=== PATIENT | male | born 1955 ===

== ENCOUNTER 2018-07-28 12:06 | Emergency (ER) | payer MEDICARE, OTHER ==
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
[2018-07-28 15:56] LABS: BASO # 0.1 K/uL (0.0-0.2); BASO % 0.7 % (0.0-2.0); EOS # 0.1 K/uL (0.0-0.7); HEMOGLOBIN 15.1 g/dL (12.0-18.0); LYMPH # 1.2 K/uL (1.0-4.3); LYMPH % 13.9 % (20.0-40.0); MEAN CELL VOLUME 85.8 fl (80.0-94.0); MEAN CORPUSCULAR HEMOGLOBIN 28.9 pg (27.0-31.0); MEAN CORPUSCULAR HGB CONC 33.7 g/dL (33.0-37.0); MEAN PLATELET VOLUME 8.8 fl (7.2-11.7); MONO # 0.4 K/uL (0.0-0.8); MONO % 4.6 % (0.0-10.0); NEUT # 7.1 K/uL (1.8-7.0); NEUT % 79.8 % (50.0-75.0); RBC 5.21 Mil/uL (4.40-5.90); RED CELL DISTRIBUTION WIDTH 13.2 % (11.5-14.5); WHITE BLOOD COUNT 8.9 K/uL (4.8-10.8)
[2018-07-28 16:23] LABS: SQUAMOUS EPITHIAL < 1 /hpf (0-5); URINE BILIRUBIN NEGATIVE (NEGATIVE); URINE BLOOD NEGATIVE (NEGATIVE); URINE CLARITY CLEAR (Clear); URINE COLOR YELLOW (YELLOW); URINE GLUCOSE (UA) >=500 mg/dL (Normal); URINE LEUKOCYTE ESTERASE NEG Leu/uL (Negative); URINE PROTEIN NEGATIVE (NEGATIVE); URINE UROBILINOGEN 0.2-1.0 mg/dL (0.2-1.0)
[2018-07-28 16:39] LABS: ALB/GLOB RATIO 1.2 (1.0-2.1); ALBUMIN 4.3 g/dL (3.5-5.0); ALT/SGPT 24 U/L (21-72); AST/SGOT 17 U/L (17-59); BLOOD UREA NITROGEN 17 mg/dl (9-20); CALCIUM 10.1 mg/dL (8.4-10.2); GFR NON-AFRICAN AMERICAN > 60
[2018-07-28 16:46] LABS: BARBITURATES, UR NEGATIVE (NEGATIVE); BENZODIAZEPINES, UR NEGATIVE (NEGATIVE); OPIATES, UR NEGATIVE (NEGATIVE); PHENCYCLIDINE, UR NEGATIVE (NEGATIVE)
--- NOTE | 2018-07-28 17:17 | RAD ---
Date of service: 07/28/2018 HISTORY: psych clearance COMPARISON: No prior TECHNIQUE: Chest PA and lateral FINDINGS: LUNGS: No active pulmonary disease. PLEURA: No significant pleural effusion identified. No pneumothorax apparent. CARDIOVASCULAR: Aortic atherosclerotic calcifications. Cardiomediastinal silhouette within normal limits. OSSEOUS STRUCTURES: Spinal degenerative changes. VISUALIZED UPPER ABDOMEN: Normal. OTHER FINDINGS: None. IMPRESSION: No active disease.
[2018-07-28 18:23] VITALS: BP 133/86; RESP 17; TEMP 98.8
--- NOTE | 2018-07-29 16:18 | CARD ---
APPROVED REPORT Date of service: 07/28/2018 EKG Measurement Heart [id number] <Conclusion> Normal sinus rhythm Normal ECG
[2018-07-29 23:14] VITALS: PULSE 82; O2SAT 98
== END 2018-07-28 18:22 | disposition home or self-care (01) ==
LOC: H.ER 12:06
DX: F02.80 Dementia in other diseases classified elsewhere, unspecified severity, without behavioral disturbance, psychotic disturbance, mood disturbance, and anxiety (principal); G30.9 Alzheimer's disease, unspecified; E11.9 Type 2 diabetes mellitus without complications
CPT/HCPCS: 71046; 80053; 81003; 85025; 93005; 99283; G0480

== ENCOUNTER 2019-02-09 23:54 | Inpatient (IN) | payer MEDICARE, OTHER ==
[2019-02-10 00:53] LABS: BASO % 0.6 % (0.0-2.0); EOS # 0.1 K/uL (0.0-0.7); EOS % 1.1 % (0.0-4.0); HEMOGLOBIN 13.9 g/dL (12.0-18.0); LYMPH # 1.4 K/uL (1.0-4.3); MEAN CELL VOLUME 85.4 fl (80.0-94.0); MEAN CORPUSCULAR HEMOGLOBIN 28.8 pg (27.0-31.0); MEAN CORPUSCULAR HGB CONC 33.7 g/dL (33.0-37.0); MEAN PLATELET VOLUME 8.5 fl (7.2-11.7); MONO # 0.5 K/uL (0.0-0.8); MONO % 6.3 % (0.0-10.0); NEUT # 5.3 K/uL (1.8-7.0); RBC 4.82 Mil/uL (4.40-5.90); RED CELL DISTRIBUTION WIDTH 13.6 % (11.5-14.5); WHITE BLOOD COUNT 7.3 K/uL (4.8-10.8)
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
[2019-02-10 01:05] LABS: ACETAMINOPHEN < 10.0 ug/ml (10.0-30.0); ALB/GLOB RATIO 1.4 (1.0-2.1); ALBUMIN 4.3 g/dL (3.5-5.0); ALT/SGPT 25 U/L (21-72); AST/SGOT 19 U/L (17-59); BLOOD UREA NITROGEN 17 mg/dl (9-20); CALCIUM 9.4 mg/dL (8.4-10.2); GFR NON-AFRICAN AMERICAN > 60; SALICYLATE < 1.0 mg/dl
[2019-02-10 04:27] LABS: SQUAMOUS EPITHIAL < 1 /hpf (0-5); URINE BILIRUBIN NEGATIVE (NEGATIVE); URINE BLOOD NEGATIVE (NEGATIVE); URINE CLARITY SLIGHTY-CLOUDY (Clear); URINE COLOR YELLOW (YELLOW); URINE GLUCOSE (UA) 150 mg/dL (NEGATIVE); URINE HYALINE CAST 0-2 /hpf (0-2); URINE LEUKOCYTE ESTERASE NEG Leu/uL (Negative); URINE PROTEIN 30 mg/dL (NEGATIVE); URINE UROBILINOGEN 0.2-1.0 mg/dL (0.2-1.0)
[2019-02-10 04:35] LABS: BARBITURATES, UR NEGATIVE (NEGATIVE); BENZODIAZEPINES, UR NEGATIVE (NEGATIVE); OPIATES, UR NEGATIVE (NEGATIVE); PHENCYCLIDINE, UR NEGATIVE (NEGATIVE)
[2019-02-10 06:29] VITALS: O2SAT 98
[2019-02-10] MEDS ORDERED: Alum-Mag Hydrox-Simethicone Susp (30 mL) PO PRN (07:13)
[2019-02-10] MEDS ORDERED: Bismuth Subsalicylate 262 mg/15 ml Sus (240 ml) PO PRN (07:13)
[2019-02-10] MEDS ORDERED: Magnesium Hydroxide Susp 30 ml UD PO PRN (07:13)
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
--- NOTE | 2019-02-10 08:12 | RAD ---
Date of service: 02/10/2019 HISTORY: chest pain COMPARISON: Chest radiographs 07/28/2018. TECHNIQUE: 1 view obtained. FINDINGS: LUNGS: No acute pulmonary disease. PLEURA: No significant pleural effusion identified, no pneumothorax apparent. CARDIOVASCULAR: No aortic atherosclerotic calcification present. Normal cardiac size. No pulmonary vascular congestion. OSSEOUS STRUCTURES: No significant abnormalities. VISUALIZED UPPER ABDOMEN: Mildly elevated right hemidiaphragm of uncertain origin. OTHER FINDINGS: None. IMPRESSION: No interval acute cardiopulmonary disease appreciated. Mildly elevated right hemidiaphragm of uncertain origin.
[2019-02-10] MEDS ORDERED: DiphenhydrAMINE 50 mg/ml Inj IM PRN (09:12)
--- NOTE | 2019-02-10 10:09 | CARD ---
APPROVED REPORT Date of service: 02/10/2019 EKG Measurement Heart [id number] <Conclusion> Normal sinus rhythm Normal ECG
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
[2019-02-10] MEDS: Divalproex 500 mg DR(BID formulation) PO SCH ×2 (13:23→16:20)
--- NOTE | 2019-02-10 17:39 | CP.PCM.CON ---
History of Present Illness - History of Present Illness History of Present Illness: 64 yo male with history of dementia admitted to [facility] because of agitation Review of Systems - Review of Systems Systems not reviewed;Unavailable: Uncooperative Past Patient History - Past Medical History & Family History Past Medical History?: Yes - Past Social History Smoking Status: Never Smoked - CARDIAC Hx Cardiac Disorders: No Hx Peripheral Edema: Yes (not at present) - PULMONARY Hx Respiratory Disorders: No Hx Tuberculosis: No - NEUROLOGICAL Hx Neurological Disorder: No Hx Alzheimer's Disease: Yes ( has power of [employer]) Hx Dementia: Yes - HEENT Hx HEENT Problems: Yes Hx Cataracts: Yes (bilat iol) - RENAL Hx Chronic Kidney Disease: No - ENDOCRINE/METABOLIC Hx Endocrine Disorders: Yes Hx Diabetes Mellitus Type 2: Yes - HEMATOLOGICAL/ONCOLOGICAL Hx Blood Disorders: No - INTEGUMENTARY Hx Dermatological Problems: No - MUSCULOSKELETAL/RHEUMATOLOGICAL Hx Musculoskeletal Disorders: No Hx Falls: No - GASTROINTESTINAL Hx Gastrointestinal Disorders: Yes Hx Gall Bladder Disease: Yes - GENITOURINARY/GYNECOLOGICAL Hx Genitourinary Disorders: No - PSYCHIATRIC Hx Substance Use: No - SURGICAL HISTORY Hx Surgeries: Yes Hx Appendectomy: Yes Hx Cholecystectomy: Yes - ANESTHESIA Hx Anesthesia: Yes Hx Anesthesia Reactions: No Hx Malignant Hyperthermia: No Meds Allergies/Adverse Reactions: Allergies Allergy/AdvReac Type Severity Reaction Status Date / Time No Known Allergies Allergy Verified 02/10/19 00:02 - Medications Medications: Current Medications Acetaminophen (Tylenol 325mg Tab) 650 mg PO Q4 PRN PRN Reason: Pain, moderate (4-7) Al Hydrox/Mg Hydrox/Simethicone (Maalox Plus 30 Ml) 30 ml PO Q4 PRN PRN Reason: Dyspepsia Bismuth Subsalicylate (Pepto-Bismol) 524 mg PO Q4 PRN PRN Reason: Diarrhea Diphenhydramine HCl (Benadryl) 50 mg IM Q6 PRN PRN Reason: Agitation Diphenhydramine HCl (Benadryl) 50 mg PO Q6 PRN PRN Reason: Agitation Divalproex Sodium (Depakote Dr(*Bid*)) 500 mg PO BID ELIZABETH Last Admin: 02/10/19 16:20 Dose: 500 mg Haloperidol Lactate (Haldol) 2 mg IM Q4 PRN PRN Reason: Agitation Lorazepam (Ativan) 0.5 mg PO HS PRN PRN Reason: Insomnia Stop: 02/24/19 07:14 Lorazepam (Ativan) 0.5 mg PO Q6 PRN PRN Reason: Anixety/Agitation Stop: 02/24/19 07:14 Magnesium Hydroxide (Milk Of Magnesia) 30 ml PO HS PRN PRN Reason: Constipation Quetiapine Fumarate (Seroquel) 100 mg PO HS ELIZABETH Physical Exam - Constitutional Appears: No Acute Distress - Head Exam Head Exam: ATRAUMATIC - Eye Exam Eye Exam: absent: Scleral icterus - ENT Exam ENT Exam: Mucous Membranes Moist - Neck Exam Neck exam: Negative for: Meningismus - Respiratory Exam Respiratory Exam: absent: Rales, Rhonchi, Wheezes, Respiratory Distress - Cardiovascular Exam Cardiovascular Exam: REGULAR RHYTHM, +S1, +S2 - GI/Abdominal Exam GI & Abdominal Exam: Soft. absent: Tenderness - Rectal Exam Rectal Exam: Deferred - Neurological Exam Neurological exam: Alert - Psychiatric Exam Psychiatric exam: Flat Affect - Skin Skin Exam: Dry, Intact Results - Vital Signs Recent Vital Signs: Last Vital Signs Temp 98.6 F 02/10/19 16:17 Pulse 94 H 02/10/19 16:17 Resp 18 02/10/19 16:17 BP 126/86 02/10/19 16:17 Pulse Ox 98 02/10/19 06:29 - Labs Result Diagrams: 02/10/19 00:44 02/10/19 00:44 Labs: Laboratory Results - last 24 hr 02/10/19 02/10/19 02/10/19 00:44 00:44 00:44 WBC 7.3 RBC 4.82 Hgb 13.9 Hct 41.1 MCV 85.4 MCH 28.8 MCHC 33.7 RDW 13.6 Plt Count 201 MPV 8.5 Neut % (Auto) 73.0 Lymph % (Auto) 19.0 L [place] % (Auto) 6.3 Eos % (Auto) 1.1 Baso % (Auto) 0.6 Neut # (Auto) 5.3 Lymph # (Auto) 1.4 [place] # (Auto) 0.5 Eos # (Auto) 0.1 Baso # (Auto) 0.0 Sodium 138 Potassium 4.3 Chloride 103 Carbon Dioxide 23 Anion Gap 16 BUN 17 Creatinine 0.8 Est GFR ( Amer) > 60 Est GFR (Non-Af Amer) > 60 POC Glucose (mg/dL) Random Glucose 154 H Calcium 9.4 Total Bilirubin 0.4 AST 19 ALT 25 Alkaline Phosphatase 54 Total Protein 7.3 Albumin 4.3 Globulin 3.0 Albumin/Globulin Ratio 1.4 Urine Color Urine Clarity Urine pH Ur Specific [place] Urine Protein Urine Glucose (UA) Urine Ketones Urine Blood Urine Nitrate Urine Bilirubin Urine Urobilinogen Ur Leukocyte Esterase Urine RBC (Auto) Urine Microscopic WBC Ur Squamous Epith Cells Hyaline Casts Salicylates < 1.0 Urine Opiates Screen Urine Methadone Screen Acetaminophen < 10.0 L Ur Barbiturates Screen Ur Phencyclidine Scrn Ur Amphetamines Screen U Benzodiazepines Scrn U Oth Cocaine Metabols U Cannabinoids Screen Alcohol, Quantitative < 10 02/10/19 02/10/19 02/10/19 04:05 04:05 16:35 WBC RBC Hgb Hct MCV MCH MCHC RDW Plt Count MPV Neut % (Auto) Lymph % (Auto) [place] % (Auto) Eos % (Auto) Baso % (Auto) Neut # (Auto) Lymph # (Auto) [place] # (Auto) Eos # (Auto) Baso # (Auto) Sodium Potassium Chloride Carbon Dioxide Anion Gap BUN Creatinine Est GFR ( Amer) Est GFR (Non-Af Amer) POC Glucose (mg/dL) 151 H Random Glucose Calcium Total Bilirubin AST ALT Alkaline Phosphatase Total Protein Albumin Globulin Albumin/Globulin Ratio Urine Color Yellow Urine Clarity Slighty-cloudy Urine pH 6.0 Ur Specific [place] 1.025 Urine Protein 30 Urine Glucose (UA) 150 Urine Ketones Negative Urine Blood Negative Urine Nitrate Negative Urine Bilirubin Negative Urine Urobilinogen 0.2-1.0 Ur Leukocyte Esterase Neg Urine RBC (Auto) 4 H Urine Microscopic WBC 1 Ur Squamous Epith Cells < 1 Hyaline Casts 0-2 Salicylates Urine Opiates Screen Negative Urine Methadone Screen Negative Acetaminophen Ur Barbiturates Screen Negative Ur Phencyclidine Scrn Negative Ur Amphetamines Screen Negative U Benzodiazepines Scrn Negative U Oth Cocaine Metabols Negative U Cannabinoids Screen Negative Alcohol, Quantitative Assessment & Plan (1) Dementia with behavioral disturbance Status: Acute Comment: psyche is managing
[2019-02-11] MEDS: Divalproex 500 mg DR(BID formulation) PO SCH (08:31)
--- NOTE | 2019-02-11 08:58 | PCM.PYCHPN ---
Psychiatric Progress Note - Psychiatric Progress Note Patient seen today, length of contact: Pt evaluated, case discussed w/ team, chart reviewed Patient Chief Complaint: Behavioral disturbances Problems Identified/Issues Discussed: Patient continues to have behavioral disturbances. He is disoriented and confused due to chronic dementia and need redirection from staff. He pulled down his pants and urinated in the middle of the hallway and also urinates on the floor of his room. Patient has been compliant with medications. No adverse effects to medications observed. No acute aggression or agitation. Medication Change: No Medical Record Reviewed: Yes Consults ordered or reviewed: Medicine consult Mental Status Examination - Cognitive Function Orientation: Person Memory: Impaired Attention: Poor Concentration: Poor Association: Loose Fund of Knowledge: Poor Decription of patient's judgement and insights: Chronic poor I/J due to dementia - Mood Mood: Neutral - Affect Affect: Constricted - Formal Thought Process Formal Thought Process: Loosening of associations, Flight of ideas Psychotic Thoughts and Behaviors: Denies AH/VH/paranoia - Suicidal Ideation Suicidal Ideation: No - Homicidal Ideation Homicidal Ideation: No Goal/Treatment Plan - Goal/Treatment Plan Need for Continued Stay: Remain at risks for inpatient hospitalization, Severe functional impairment Progress Toward Problem(s) and Goals/Treatment Plan: Dementia with behavioral disturbances; Mood Disorder NOS -Individual and group therapy -Continue Seroquel -Continue Depakote -Medicine consult -Obtain collateral history -Disposition planning
[2019-02-11] MEDS ORDERED: Patient's Own Med (Sitagliptin Phos/Metformin Hcl [Janumet 50-1,000 Mg Tablet] 1 TAB) PO SCH (09:00)
[2019-02-11 10:42] LABS: IRON 77 ug/dL (49-181)
[2019-02-11 10:52] LABS: % IRON SATURATION 30 % (20-55); TOTAL IRON BINDING CAPACITY 254 ug/dL (250-450)
[2019-02-11] MEDS: Divalproex 125 mg Sprinkle Capsule PO SCH (16:33)
[2019-02-11 17:43] LABS: FOLATE 15.2 ng/mL
[2019-02-12] MEDS: Divalproex 125 mg Sprinkle Capsule PO SCH ×2 (08:04→17:00)
[2019-02-12] MEDS: Patient's Own Med (Sitagliptin Phos/Metformin Hcl [Janumet 50-1,000 Mg Tablet] 1 TAB) PO SCH (08:05)
--- NOTE | 2019-02-12 09:56 | PCM.PYCHPN ---
Psychiatric Progress Note - Psychiatric Progress Note Patient seen today, length of contact: Pt evaluated, case discussed w/ team, chart reviewed Patient Chief Complaint: Behavioral disturbances Problems Identified/Issues Discussed: Patient continues to have behavioral disturbances, he continues to disoriented and wanders around confused. He continues to urinate on the floor and needs staff redirection. He has not been violent or aggressive. Patient has been com pliant with medications. Medication Change: Yes (Restart Exelon patch) Medical Record Reviewed: Yes Consults ordered or reviewed: Medicine consult Mental Status Examination - Cognitive Function Orientation: Person Memory: Impaired Attention: Poor Concentration: Poor Association: Loose Fund of Knowledge: Poor Decription of patient's judgement and insights: Chronic poor I/J due to dementia - Mood Mood: Neutral - Affect Affect: Constricted - Formal Thought Process Formal Thought Process: Loosening of associations, Flight of ideas Psychotic Thoughts and Behaviors: Denies AH/VH/paranoia - Suicidal Ideation Suicidal Ideation: No - Homicidal Ideation Homicidal Ideation: No Goal/Treatment Plan - Goal/Treatment Plan Need for Continued Stay: Remain at risks for inpatient hospitalization, Severe functional impairment Progress Toward Problem(s) and Goals/Treatment Plan: Dementia with behavioral disturbances; Mood Disorder NOS -Individual and group therapy -Continue Seroquel -Continue Depakote -Restart Exelon patch -Medicine consult -Collateral history obtained from patient's -Disposition planning Estimated Date of D/C: 02/16/19
--- NOTE | 2019-02-13 08:39 | PCM.PYCHPN ---
Psychiatric Progress Note - Psychiatric Progress Note Patient seen today, length of contact: Pt evaluated, case discussed w/ team, chart reviewed Patient Chief Complaint: Behavioral disturbances Problems Identified/Issues Discussed: Patient continues to be disorganized, disoriented and wanders around. He needs redirection from staff and has to be instructed to complete his ADLs. He has not been violent or aggressive. Patient has been compliant with medications. Medication Change: No Medical Record Reviewed: Yes Consults ordered or reviewed: Medicine consult Mental Status Examination - Cognitive Function Orientation: Person Memory: Impaired Attention: Poor Concentration: Poor Association: Loose Fund of Knowledge: Poor Decription of patient's judgement and insights: Chronic poor I/J due to dementia - Mood Mood: Neutral - Affect Affect: Constricted - Formal Thought Process Formal Thought Process: Loosening of associations, Flight of ideas Psychotic Thoughts and Behaviors: Denies AH/VH/paranoia - Suicidal Ideation Suicidal Ideation: No - Homicidal Ideation Homicidal Ideation: No Goal/Treatment Plan - Goal/Treatment Plan Need for Continued Stay: Remain at risks for inpatient hospitalization, Severe functional impairment Progress Toward Problem(s) and Goals/Treatment Plan: Dementia with behavioral disturbances; Mood Disorder NOS -Individual and group therapy -Continue Seroquel -Continue Depakote; check VPA -Continue Exelon patch -Medicine consult -Collateral history obtained from patient's -Disposition planning Estimated Date of D/C: 02/16/19
[2019-02-13] MEDS: Divalproex 125 mg Sprinkle Capsule PO SCH ×2 (09:37→16:17)
[2019-02-13] MEDS: Patient's Own Med (Sitagliptin Phos/Metformin Hcl [Janumet 50-1,000 Mg Tablet] 1 TAB) PO SCH (09:37)
--- NOTE | 2019-02-13 09:52 | CP.PCM.CON ---
History of Present Illness - History of Present Illness History of Present Illness: Pt is a 64 year old male admitted to the geropsych unit of [facility] and referred to the business writer for evaluation. The business writer attempted to administer the Dementia Rating Scale. Pt was well groomed and dressed in pajamas. He required frequent prompts to follow the business writer into the examination room. Speech was irrelevant/incoherent at times. On the DRS, pt repeated two digits forward though was unable to repeat 3 digits. He was unable to repeat any digits backward. On initiation tasks, pt was unable to repeat any items from a supermarket. Pt was unable to draw commonalities among items for the verbal abstaction exercises. Pt was unable to copy objects on command. Pt was not oriented, though recognized his name. He reported being , was unable to provide his . 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 power of deputy attorney general) Hx Dementia: Yes - HEENT Hx HEENT Problems: Yes Hx Cataracts: Yes (bilat iol) - RENAL Hx Chronic Kidney Disease: No - ENDOCRINE/METABOLIC Hx Endocrine Disorders: Yes Hx Diabetes Mellitus Type 2: Yes - INTEGUMENTARY Hx Dermatological Problems: No - MUSCULOSKELETAL/RHEUMATOLOGICAL Hx Musculoskeletal Disorders: No Hx Falls: No - GASTROINTESTINAL Hx Gall Bladder Disease: Yes - PSYCHIATRIC Hx Anxiety: Yes - SURGICAL HISTORY Hx Appendectomy: Yes Hx Cholecystectomy: Yes - ANESTHESIA Hx Anesthesia: Yes Hx Anesthesia Reactions: No Hx Malignant Hyperthermia: No Meds Allergies/Adverse Reactions: Allergies Allergy/AdvReac Type Severity Reaction Status Date / Time No Known Allergies Allergy Verified 02/10/19 00:02 - Medications Medications: Current Medications Acetaminophen (Tylenol 325mg Tab) 650 mg PO Q4 PRN PRN Reason: Pain, moderate (4-7) Al Hydrox/Mg Hydrox/Simethicone (Maalox Plus 30 Ml) 30 ml PO Q4 PRN PRN Reason: Dyspepsia Bismuth Subsalicylate (Pepto-Bismol) 524 mg PO Q4 PRN PRN Reason: Diarrhea Diphenhydramine HCl (Benadryl) 50 mg IM Q6 PRN PRN Reason: Agitation Diphenhydramine HCl (Benadryl) 50 mg PO Q6 PRN PRN Reason: Agitation Divalproex Sodium (Depakote Sprinkles) 500 mg PO BID [facility] Last Admin: 02/13/19 09:37 Dose: 500 mg Haloperidol Lactate (Haldol) 2 mg IM Q4 PRN PRN Reason: Agitation Home Med (Sitagliptin Phos/Metformin Hcl [Janumet 50-1,000 Mg Tablet]) 1 tab PO DAILY [facility] Last Admin: 02/13/19 09:37 Dose: 1 tab Lorazepam (Ativan) 0.5 mg PO HS PRN PRN Reason: Insomnia Stop: 02/24/19 07:14 Lorazepam (Ativan) 0.5 mg PO Q6 PRN PRN Reason: Anixety/Agitation Stop: 02/24/19 07:14 Magnesium Hydroxide (Milk Of Magnesia) 30 ml PO HS PRN PRN Reason: Constipation Quetiapine Fumarate (Seroquel) 100 mg PO HS [facility] Last Admin: 02/12/19 21:00 Dose: 100 mg Rivastigmine (Exelon 9.5 Mg/24 Hr Patch) 1 patch TD DAILY [facility] Last Admin: 02/13/19 09:37 Dose: 1 patch Results - Vital Signs Recent Vital Signs: Last Vital Signs Temp 98.2 F 02/11/19 16:33 Pulse 92 H 02/11/19 16:33 Resp 20 02/11/19 16:33 BP 134/66 02/11/19 16:33 Pulse Ox 98 02/11/19 10:21 - Labs Result Diagrams: 02/10/19 00:44 02/10/19 00:44 Labs: Laboratory Results - last 24 hr 02/12/19 02/12/19 02/12/19 11:14 15:23 20:00 POC Glucose (mg/dL) 167 H 164 H 203 H
[2019-02-14] MEDS: Patient's Own Med (Sitagliptin Phos/Metformin Hcl [Janumet 50-1,000 Mg Tablet] 1 TAB) PO SCH (09:04)
[2019-02-14] MEDS: Divalproex 125 mg Sprinkle Capsule PO SCH ×2 (09:04→16:35)
--- NOTE | 2019-02-14 11:55 | PCM.PYCHPN ---
Psychiatric Progress Note - Psychiatric Progress Note Patient seen today, length of contact: Pt evaluated, case discussed w/ team, chart reviewed Problems Identified/Issues Discussed: defers having mental illness, staff report pt requires frequent redirection, adherent with treatment with staff assistance, staff report pt's been involved Medical Problems: per chart Diagnostic Results: per psychiatry, medicine, nursing, social research assistant, recreational therapy DSM 5 Symptoms Update: some lability in mood some impulsive clappng of hand reaching in air Medication Change: No Medical Record Reviewed: Yes Consults ordered or reviewed: pt being followed by medical team Mental Status Examination - Cognitive Function Orientation: Person Memory: Impaired Attention: Poor Concentration: Poor Association: Loose Fund of Knowledge: Poor Decription of patient's judgement and insights: poor - Mood Mood: Neutral - Affect Affect: Constricted - Formal Thought Process Formal Thought Process: Loosening of associations, Flight of ideas - Suicidal Ideation Suicidal Ideation: No - Homicidal Ideation Homicidal Ideation: No Goal/Treatment Plan - Goal/Treatment Plan Need for Continued Stay: Remain at risks for inpatient hospitalization, Severe functional impairment Progress Toward Problem(s) and Goals/Treatment Plan: inpt milieu adjust meds per clinical status skin care per protocol 2nd adhesive/patch/excelon discharge planning in progress Estimated Date of D/C: 02/16/19 - Smoking Cessation Smoking Cessation Initiated: No Reason for not providing: not indicated per hx.
[2019-02-14 16:47] VITALS: RESP 20
[2019-02-15] MEDS: Patient's Own Med (Sitagliptin Phos/Metformin Hcl [Janumet 50-1,000 Mg Tablet] 1 TAB) PO SCH (08:54)
[2019-02-15] MEDS: Divalproex 125 mg Sprinkle Capsule PO SCH ×2 (08:54→16:36)
[2019-02-15 11:57] VITALS: BMI 35.9
[2019-02-15 16:35] VITALS: BP 115/77; PULSE 73; TEMP 97.1
--- NOTE | 2019-02-15 17:08 | PCM.PYCHPN ---
Psychiatric Progress Note - Psychiatric Progress Note Patient seen today, length of contact: Pt evaluated, case discussed w/ team, chart reviewed Patient Chief Complaint: pt wanders on unit, staff report pt somewhat more redirectable but continues to require redirection including with adls/promping with toileting. Problems Identified/Issues Discussed: defers having mental illness, staff report pt requires frequent redirection, adherent with treatment with staff assistance, staff report pt's been involved Medical Problems: per chart Diagnostic Results: per psychiatry, medicine, nursing, social sciences chair, recreational therapy DSM 5 Symptoms Update: appears to be reaching baseline cognitive function Medication Change: No Medical Record Reviewed: Yes Consults ordered or reviewed: pt being followed by medical team Mental Status Examination - Cognitive Function Orientation: Person Memory: Impaired Attention: Poor Concentration: Poor Association: Loose Fund of Knowledge: Poor Decription of patient's judgement and insights: poor - Mood Mood: Neutral - Affect Affect: Constricted - Formal Thought Process Formal Thought Process: Loosening of associations, Flight of ideas - Suicidal Ideation Suicidal Ideation: No - Homicidal Ideation Homicidal Ideation: No Goal/Treatment Plan - Goal/Treatment Plan Need for Continued Stay: Remain at risks for inpatient hospitalization, Severe functional impairment Progress Toward Problem(s) and Goals/Treatment Plan: inpt milieu adjust meds per clinical status skin care per protocol 2nd adhesive/patch/excelon vital signs/clinical observation per protocol and per clinical status regular scheduled assistance adls/tolieting discharge planning in progress Estimated Date of D/C: 02/16/19 - Smoking Cessation Smoking Cessation Initiated: No Reason for not providing: pt deferse
[2019-02-16 08:08] LABS: BASO % 0.3 % (0.0-2.0); EOS # 0.1 K/uL (0.0-0.7); HEMOGLOBIN 14.4 g/dL (12.0-18.0); LYMPH # 1.3 K/uL (1.0-4.3); MEAN CELL VOLUME 88.3 fl (80.0-94.0); MEAN CORPUSCULAR HEMOGLOBIN 29.2 pg (27.0-31.0); MEAN CORPUSCULAR HGB CONC 33.1 g/dL (33.0-37.0); MEAN PLATELET VOLUME 8.6 fl (7.2-11.7); MONO # 0.7 K/uL (0.0-0.8); MONO % 8.8 % (0.0-10.0); NEUT # 5.3 K/uL (1.8-7.0); NEUT % 71.9 % (50.0-75.0); NRBC % 0.1 % (0.0-0.0); RBC 4.91 Mil/uL (4.40-5.90); RED CELL DISTRIBUTION WIDTH 13.9 % (11.5-14.5); WHITE BLOOD COUNT 7.4 K/uL (4.8-10.8)
[2019-02-16 08:34] LABS: ALB/GLOB RATIO 1.4 (1.0-2.1); ALBUMIN 4.2 g/dL (3.5-5.0); ALT/SGPT 21 U/L (21-72); AST/SGOT 29 U/L (17-59); BLOOD UREA NITROGEN 18 mg/dl (9-20); CALCIUM 9.9 mg/dL (8.4-10.2); GFR NON-AFRICAN AMERICAN > 60
[2019-02-16] MEDS: Divalproex 125 mg Sprinkle Capsule PO SCH (08:40)
[2019-02-16] MEDS: Patient's Own Med (Sitagliptin Phos/Metformin Hcl [Janumet 50-1,000 Mg Tablet] 1 TAB) PO SCH (08:41)
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
== END 2019-02-16 14:15 | disposition home or self-care (01) | DRG 57 ==
LOC: H.ER 23:54 → H.ERHOLD 02-10 03:11 → H.STEP 02-10 07:11
PROVIDERS: ADMIT Psychiatry & Neurology Psychiatry; ATTEND Psychiatry & Neurology Psychiatry
PROC: GZHZZZZ Group Psychotherapy (ICD-10-PCS; principal; 2019-02-10)
DX: G30.9 Alzheimer's disease, unspecified (principal); F02.81 Dementia in other diseases classified elsewhere, unspecified severity, with behavioral disturbance; E11.9 Type 2 diabetes mellitus without complications; Z91.83 Wandering in diseases classified elsewhere; F39 Unspecified mood [affective] disorder; Z78.1 Physical restraint status

== ENCOUNTER 2019-02-19 17:20 | Inpatient (IN) | payer MEDICARE ==
[2019-02-19 17:20] VITALS: BMI 35.9
[2019-02-19 18:08] VITALS: O2SAT 99
[2019-02-19 19:21] LABS: BASO % 0.4 % (0.0-2.0); EOS # 0.1 K/uL (0.0-0.7); EOS % 1.5 % (0.0-4.0); HEMOGLOBIN 13.9 g/dL (12.0-18.0); LYMPH # 1.3 K/uL (1.0-4.3); LYMPH % 16.9 % (20.0-40.0); MEAN CELL VOLUME 87.7 fl (80.0-94.0); MEAN CORPUSCULAR HEMOGLOBIN 28.5 pg (27.0-31.0); MEAN CORPUSCULAR HGB CONC 32.5 g/dL (33.0-37.0); MEAN PLATELET VOLUME 8.9 fl (7.2-11.7); MONO # 0.6 K/uL (0.0-0.8); MONO % 7.4 % (0.0-10.0); NEUT # 5.5 K/uL (1.8-7.0); NEUT % 73.8 % (50.0-75.0); NRBC % 0.2 % (0.0-0.0); RBC 4.88 Mil/uL (4.40-5.90); RED CELL DISTRIBUTION WIDTH 13.8 % (11.5-14.5); WHITE BLOOD COUNT 7.5 K/uL (4.8-10.8)
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
[2019-02-19 19:38] LABS: ALB/GLOB RATIO 1.4 (1.0-2.1); ALBUMIN 4.5 g/dL (3.5-5.0); ALT/SGPT 24 U/L (21-72); AST/SGOT 22 U/L (17-59); BLOOD UREA NITROGEN 16 mg/dl (9-20); CALCIUM 9.5 mg/dL (8.4-10.2); GFR NON-AFRICAN AMERICAN > 60
[2019-02-19 20:43] LABS: SQUAMOUS EPITHIAL < 1 /hpf (0-5); URINE BACTERIA RARE (<OCC); URINE BILIRUBIN NEGATIVE (NEGATIVE); URINE BLOOD NEGATIVE (NEGATIVE); URINE CLARITY SLIGHTY-CLOUDY (Clear); URINE COLOR YELLOW (YELLOW); URINE GLUCOSE (UA) 150 mg/dL (NEGATIVE); URINE LEUKOCYTE ESTERASE NEG Leu/uL (Negative); URINE PROTEIN 30 mg/dL (NEGATIVE)
[2019-02-19 20:48] LABS: BARBITURATES, UR NEGATIVE (NEGATIVE); BENZODIAZEPINES, UR NEGATIVE (NEGATIVE); OPIATES, UR NEGATIVE (NEGATIVE); PHENCYCLIDINE, UR NEGATIVE (NEGATIVE); URINE UROBILINOGEN 0.2-1.0 mg/dL (0.2-1.0)
[2019-02-19] MEDS ORDERED: DiphenhydrAMINE 50 mg/ml Inj IM STA (23:49)
[2019-02-20] MEDS ORDERED: Bismuth Subsalicylate 262 mg/15 ml Sus (240 ml) PO PRN (00:14)
[2019-02-20] MEDS ORDERED: Alum-Mag Hydrox-Simethicone Susp (30 mL) PO PRN (00:14)
[2019-02-20] MEDS ORDERED: Magnesium Hydroxide Susp 30 ml UD PO PRN (00:14)
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
[2019-02-20] MEDS: Divalproex 125 mg Sprinkle Capsule PO SCH ×2 (11:10→16:38)
[2019-02-20] MEDS: Insulin Regular 100 units/ml SC SCH (11:12)
--- NOTE | 2019-02-20 11:50 | CARD ---
APPROVED REPORT Date of service: 02/19/2019 EKG Measurement Heart [id number] CT [id number] <Conclusion> Normal sinus rhythm Normal ECG
[2019-02-20 12:44] LABS: IRON 54 ug/dL (49-181)
[2019-02-20 12:55] LABS: % IRON SATURATION 22 % (20-55); TOTAL IRON BINDING CAPACITY 251 ug/dL (250-450)
--- NOTE | 2019-02-20 13:43 | CP.PCM.CON ---
History of Present Illness - History of Present Illness History of Present Illness: Unable to take information from patient due to severe dementia. 64 yo male admitted to psych due to worsening dementia and aggressive behavior. Patient have a history of DM, otherwise patient medically healthy. Hospitalist were consulted for medical clearance and assessment. ROS unable to perform due patient mentation PMD: Ras Murray PMH: DM, dementia Med: Janumet, quetiapine, divalproex, rivastigmine PSHx: Appendectomy, cholecystectomy, cataract surgery Review of Systems - Review of Systems Review of Systems: Unable to perform due mentation Past Patient History - Past Medical History & Family History Past Medical History?: Yes - Past Social History Alcohol: None Drugs: Denies - CARDIAC Hx Peripheral Edema: Yes (not at present) - PULMONARY Hx Tuberculosis: No - NEUROLOGICAL Hx Alzheimer's Disease: Yes ( has power of deputy commonwealth's attorney) Hx Dementia: Yes - HEENT Hx HEENT Problems: Yes Hx Cataracts: Yes (bilat iol) - RENAL Hx Chronic Kidney Disease: No - ENDOCRINE/METABOLIC Hx Endocrine Disorders: Yes Hx Diabetes Mellitus Type 2: Yes - INTEGUMENTARY Hx Dermatological Problems: No - MUSCULOSKELETAL/RHEUMATOLOGICAL Hx Musculoskeletal Disorders: No Hx Falls: No - GASTROINTESTINAL Hx Gall Bladder Disease: Yes - PSYCHIATRIC Hx Anxiety: Yes - SURGICAL HISTORY Hx Appendectomy: Yes Hx Cholecystectomy: Yes - ANESTHESIA Hx Anesthesia: Yes Hx Anesthesia Reactions: No Hx Malignant Hyperthermia: No Meds Allergies/Adverse Reactions: Allergies Allergy/AdvReac Type Severity Reaction Status Date / Time No Known Allergies Allergy Verified 02/10/19 00:02 - Medications Medications: Current Medications Acetaminophen (Tylenol 325mg Tab) 650 mg PO Q4 PRN PRN Reason: Pain, moderate (4-7) Al Hydrox/Mg Hydrox/Simethicone (Maalox Plus 30 Ml) 30 ml PO Q4 PRN PRN Reason: Dyspepsia Bismuth Subsalicylate (Pepto-Bismol) 524 mg PO Q4 PRN PRN Reason: Diarrhea Divalproex Sodium (Depakote Sprinkles) 500 mg PO DAILY [facility] Last Admin: 02/20/19 11:10 Dose: 500 mg Divalproex Sodium (Depakote Sprinkles) 750 mg PO DAILY@1700 [facility] Insulin Human Regular (Humulin R) 0 units SC [facility]; Protocol Last Admin: 02/20/19 11:12 Dose: Not Given Lorazepam (Ativan) 0.5 mg PO HS PRN PRN Reason: Insomnia Stop: 03/06/19 00:15 Lorazepam (Ativan) 0.5 mg PO Q6 PRN PRN Reason: Anixety/Agitation Stop: 03/06/19 00:15 Magnesium Hydroxide (Milk Of Magnesia) 30 ml PO HS PRN PRN Reason: Constipation Metformin HCl (Glucophage) 1,000 mg PO BRK [facility] Last Admin: 02/20/19 11:11 Dose: 1,000 mg Quetiapine Fumarate (Seroquel) 100 mg PO HS [facility] Rivastigmine (Exelon 9.5 Mg/24 Hr Patch) 1 patch TD DAILY [facility] Last Admin: 02/20/19 11:11 Dose: 1 patch Sitagliptin Phosphate (Januvia) 50 mg PO DAILY [facility] Last Admin: 02/20/19 11:11 Dose: 50 mg Physical Exam - Constitutional Appears: Well, Non-toxic, No Acute Distress - Head Exam Head Exam: ATRAUMATIC, NORMAL INSPECTION, NORMOCEPHALIC - Eye Exam Eye Exam: EOMI, Normal appearance, PERRL Pupil Exam: NORMAL ACCOMODATION, PERRL - ENT Exam ENT Exam: Mucous Membranes Moist, Normal Exam - Neck Exam Neck exam: Positive for: Normal Inspection - Respiratory Exam Respiratory Exam: Clear to Auscultation Bilateral, NORMAL BREATHING PATTERN - Cardiovascular Exam Cardiovascular Exam: REGULAR RHYTHM, +S1, +S2 - GI/Abdominal Exam GI & Abdominal Exam: Normal Bowel Sounds, Soft - Extremities Exam Extremities exam: Positive for: normal inspection - Back Exam Back exam: NORMAL INSPECTION - Skin Skin Exam: Dry, Intact, Normal Color, Warm Results - Vital Signs Recent Vital Signs: Last Vital Signs Temp 98 F 02/19/19 18:04 Pulse 96 H 02/19/19 22:32 Resp 16 02/20/19 00:23 BP 124/80 02/19/19 18:04 Pulse Ox 99 02/19/19 22:32 - Labs Result Diagrams: 02/19/19 19:00 02/19/19 19:00 Labs: Laboratory Results - last 24 hr 02/19/19 02/19/19 02/19/19 19:00 19:00 20:00 WBC 7.5 RBC 4.88 Hgb 13.9 Hct 42.8 MCV 87.7 MCH 28.5 MCHC 32.5 L RDW 13.8 Plt Count 195 MPV 8.9 Neut % (Auto) 73.8 Lymph % (Auto) 16.9 L Gentry % (Auto) 7.4 Eos % (Auto) 1.5 Baso % (Auto) 0.4 Neut # (Auto) 5.5 Lymph # (Auto) 1.3 Gentry # (Auto) 0.6 Eos # (Auto) 0.1 Baso # (Auto) 0.0 Sodium 139 Potassium 4.6 Chloride 102 Carbon Dioxide 25 Anion Gap 17 BUN 16 Creatinine 0.8 Est GFR ( Amer) > 60 Est GFR (Non-Af Amer) > 60 POC Glucose (mg/dL) Random Glucose 136 H Calcium 9.5 Iron TIBC % Saturation Ferritin Total Bilirubin 0.4 AST 22 ALT 24 Alkaline Phosphatase 74 Total Protein 7.8 Albumin 4.5 Globulin 3.3 Albumin/Globulin Ratio 1.4 Triglycerides Cholesterol LDL Cholesterol Direct HDL Cholesterol Vitamin B12 Free T4 Thyroxine (T4) TSH 3rd Generation Urine Color Urine Clarity Urine pH Ur Specific Neches Urine Protein Urine Glucose (UA) Urine Ketones Urine Blood Urine Nitrate Urine Bilirubin Urine Urobilinogen Ur Leukocyte Esterase Urine RBC (Auto) Urine Microscopic WBC Ur Squamous Epith Cells Urine Bacteria Urine Opiates Screen Urine Methadone Screen Ur Barbiturates Screen Valproic Acid 69.0 Ur Phencyclidine Scrn Ur Amphetamines Screen U Benzodiazepines Scrn U Oth Cocaine Metabols U Cannabinoids Screen Alcohol, Quantitative < 10 02/19/19 02/19/19 02/19/19 20:20 20:20 20:41 WBC RBC Hgb Hct MCV MCH MCHC RDW Plt Count MPV Neut % (Auto) Lymph % (Auto) Gentry % (Auto) Eos % (Auto) Baso % (Auto) Neut # (Auto) Lymph # (Auto) Gentry # (Auto) Eos # (Auto) Baso # (Auto) Sodium Potassium Chloride Carbon Dioxide Anion Gap BUN Creatinine Est GFR ( Amer) Est GFR (Non-Af Amer) POC Glucose (mg/dL) 126 H Random Glucose Calcium Iron TIBC % Saturation Ferritin Total Bilirubin AST ALT Alkaline Phosphatase Total Protein Albumin Globulin Albumin/Globulin Ratio Triglycerides Cholesterol LDL Cholesterol Direct HDL Cholesterol Vitamin B12 Free T4 Thyroxine (T4) TSH 3rd Generation Urine Color Yellow Urine Clarity Slighty-cloudy Urine pH 5.0 Ur Specific Neches 1.027 Urine Protein 30 Urine Glucose (UA) 150 Urine Ketones Trace Urine Blood Negative Urine Nitrate Negative Urine Bilirubin Negative Urine Urobilinogen 0.2-1.0 Ur Leukocyte Esterase Neg Urine RBC (Auto) 1 Urine Microscopic WBC 1 Ur Squamous Epith Cells < 1 Urine Bacteria Rare Urine Opiates Screen Negative Urine Methadone Screen Negative Ur Barbiturates Screen Negative Valproic Acid Ur Phencyclidine Scrn Negative Ur Amphetamines Screen Negative U Benzodiazepines Scrn Negative U Oth Cocaine Metabols Negative U Cannabinoids Screen Negative Alcohol, Quantitative 02/20/19 02/20/19 02/20/19 11:45 11:45 11:45 WBC RBC Hgb Hct MCV MCH MCHC RDW Plt Count MPV Neut % (Auto) Lymph % (Auto) Gentry % (Auto) Eos % (Auto) Baso % (Auto) Neut # (Auto) Lymph # (Auto) Gentry # (Auto) Eos # (Auto) Baso # (Auto) Sodium Potassium Chloride Carbon Dioxide Anion Gap BUN Creatinine Est GFR ( Amer) Est GFR (Non-Af Amer) POC Glucose (mg/dL) Random Glucose Calcium Iron 54 TIBC 251 % Saturation 22 Ferritin 147.0 Total Bilirubin AST ALT Alkaline Phosphatase Total Protein Albumin Globulin Albumin/Globulin Ratio Triglycerides 140 Cholesterol 168 LDL Cholesterol Direct 90 HDL Cholesterol 57 Vitamin B12 723 Free T4 0.98 Thyroxine (T4) 6.96 TSH 3rd Generation 3.55 Urine Color Urine Clarity Urine pH Ur Specific [place] Urine Protein Urine Glucose (UA) Urine Ketones Urine Blood Urine Nitrate Urine Bilirubin Urine Urobilinogen Ur Leukocyte Esterase Urine RBC (Auto) Urine Microscopic WBC Ur Squamous Epith Cells Urine Bacteria Urine Opiates Screen Urine Methadone Screen Ur Barbiturates Screen Valproic Acid Ur Phencyclidine Scrn Ur Amphetamines Screen U Benzodiazepines Scrn U Oth Cocaine Metabols U Cannabinoids Screen Alcohol, Quantitative Assessment & Plan - Assessment and Plan (Free Text) Assessment: 64 yo male admitted to psych due to worsening dementia and aggressive behavior. Patient have a history of DM, otherwise patient medically healthy. Hospitalist were consulted for medical clearance and assessment. Diabetes mellitus start metformin 1000mg and sitagliptin 50mg Glucose in 120s Will continue medication hypoglycemic protocol Will check hemog A1C Lipid panel T4 TSH Vit b12/Ferriting and folate Dementia Continue as per Psych management Check for valproic acid Patient chart and labs were reviewed. Patient is clear by medical team, Continue management as per Psych Thank you for consult
--- NOTE | 2019-02-20 14:42 | RAD ---
Date of service: 02/19/2019 HISTORY: clearance COMPARISON: 02/10/2019 TECHNIQUE: 1 view obtained. FINDINGS: LUNGS: No active pulmonary disease. PLEURA: No significant pleural effusion identified, no pneumothorax apparent. CARDIOVASCULAR: No aortic atherosclerotic calcification present. Normal cardiac size. No pulmonary vascular congestion. OSSEOUS STRUCTURES: No significant abnormalities. VISUALIZED UPPER ABDOMEN: Normal. OTHER FINDINGS: None. IMPRESSION: No active disease.
[2019-02-20 18:41] LABS: FOLATE 16.3 ng/mL
[2019-02-21] MEDS: Insulin Regular 100 units/ml SC SCH (11:57)
[2019-02-21] MEDS: Divalproex 125 mg Sprinkle Capsule PO SCH ×2 (12:02→16:19)
--- NOTE | 2019-02-21 14:26 | PCM.PYCHPN ---
Psychiatric Progress Note - Psychiatric Progress Note Patient seen today, length of contact: pt evaluated discussed with team chart reviewed Patient Chief Complaint: ok Problems Identified/Issues Discussed: pt seen in bed, anxious and irritable affect, partial eye contact, no reported behavioural disturbances, confused oriented to person only DSM 5 Symptoms Update: major neurocognitive disorder Medication Change: No Medical Record Reviewed: Yes Mental Status Examination - Cognitive Function Orientation: Person Attention: WNL Concentration: Poor Association: Loose Fund of Knowledge: Poor - Mood Mood: Neutral - Affect Affect: Constricted - Formal Thought Process Formal Thought Process: Loosening of associations, Circumstantial - Homicidal Ideation Homicidal Ideation: No Goal/Treatment Plan - Goal/Treatment Plan Need for Continued Stay: Remain at risks for inpatient hospitalization, Discharge may exacerbated symptoms Progress Toward Problem(s) and Goals/Treatment Plan: continue current management
[2019-02-22] MEDS: Bacitracin OINT 15GM TOP SCH ×2 (10:34→18:00)
[2019-02-22] MEDS: Divalproex 125 mg Sprinkle Capsule PO SCH ×2 (10:34→18:02)
[2019-02-22] MEDS: Insulin Regular 100 units/ml SC SCH (10:35)
--- NOTE | 2019-02-22 11:49 | PCM.PYCHPN ---
Psychiatric Progress Note - Psychiatric Progress Note Patient seen today, length of contact: pt evaluated discussed with team chart reviewed Patient Chief Complaint: ok Problems Identified/Issues Discussed: pt seen in bed, confused, oriented to person only , no reported recent behavioral disturbances, no reported side effects of Medications, denied S/H I Medication Change: No Medical Record Reviewed: Yes Mental Status Examination - Cognitive Function Orientation: Person Attention: WNL Concentration: Poor Association: Loose Fund of Knowledge: Poor - Mood Mood: Neutral - Affect Affect: Constricted - Formal Thought Process Formal Thought Process: Loosening of associations, Circumstantial - Homicidal Ideation Homicidal Ideation: No Goal/Treatment Plan - Goal/Treatment Plan Need for Continued Stay: Remain at risks for inpatient hospitalization, Discharge may exacerbated symptoms Progress Toward Problem(s) and Goals/Treatment Plan: continue current management
[2019-02-23] MEDS: Insulin Regular 100 units/ml SC SCH (08:32)
[2019-02-23] MEDS: Bacitracin OINT 15GM TOP SCH ×2 (08:46→17:36)
[2019-02-23] MEDS: Divalproex 125 mg Sprinkle Capsule PO SCH ×2 (08:46→17:36)
[2019-02-23] MEDS: Patient's Own Med (Sitagliptin Phos/Metformin Hcl [Janumet 50-1,000 Mg Tablet] 1 TAB) PO SCH (08:56)
[2019-02-23] MEDS ORDERED: Patient's Own Med (Sitagliptin Phos/Metformin Hcl [Janumet 50-1,000 Mg Tablet] 1 TAB) PO SCH (09:00)
--- NOTE | 2019-02-23 12:18 | PCM.PYCHPN ---
Psychiatric Progress Note - Psychiatric Progress Note Patient seen today, length of contact: pt evaluated discussed with team chart reviewed Patient Chief Complaint: i am ok Problems Identified/Issues Discussed: pt seen in bed, confused, oriented to person only , no reported recent behavioral disturbances, no reported side effects of Medications, denied S/H I Medication Change: No Medical Record Reviewed: Yes Mental Status Examination - Cognitive Function Orientation: Person Attention: WNL Concentration: Poor Association: Loose Fund of Knowledge: Poor - Mood Mood: Neutral - Affect Affect: Constricted - Formal Thought Process Formal Thought Process: Loosening of associations, Circumstantial - Homicidal Ideation Homicidal Ideation: No Goal/Treatment Plan - Goal/Treatment Plan Need for Continued Stay: Remain at risks for inpatient hospitalization, Discharge may exacerbated symptoms Progress Toward Problem(s) and Goals/Treatment Plan: continue current management disposition planning
[2019-02-23 16:03] VITALS: RESP 18
--- NOTE | 2019-02-24 09:29 | PCM.PYCHPN ---
Psychiatric Progress Note - Psychiatric Progress Note Patient seen today, length of contact: Pt evaluated, case discussed w/ team, chart reviewed Patient Chief Complaint: Behavioral disturbances, now improved Problems Identified/Issues Discussed: Patient is improving clinically. He is approaching his baseline of functioning. He continues to have chronic neurocognitive deficits and needs redirect due to severe neurocognitive impairment. Family is not interested in snf placement at this time. Medication Change: Yes (Increase Seroquel) Medical Record Reviewed: Yes Consults ordered or reviewed: Medicine consult Mental Status Examination - Cognitive Function Orientation: Person Memory: Impaired Concentration: Poor Association: Loose Fund of Knowledge: Poor Decription of patient's judgement and insights: Chronic poor I/J due to dementia - Mood Mood: Neutral - Affect Affect: Constricted - Formal Thought Process Formal Thought Process: Loosening of associations, Circumstantial Psychotic Thoughts and Behaviors: No AH/VH/paranoia/delusions - Suicidal Ideation Suicidal Ideation: No - Homicidal Ideation Homicidal Ideation: No Goal/Treatment Plan - Goal/Treatment Plan Need for Continued Stay: Severe functional impairment Progress Toward Problem(s) and Goals/Treatment Plan: Dementia with behavioral disturbances; Mood Disorder NOS -Individual and group therapy -Increase Seroquel -Continue Depakote -Continue Exelon patch -Medicine consult -Disposition planning Estimated Date of D/C: 02/25/19
[2019-02-24] MEDS: Insulin Regular 100 units/ml SC SCH (10:00)
[2019-02-24 10:14] LABS: BASO % 0.3 % (0.0-2.0); EOS # 0.1 K/uL (0.0-0.7); EOS % 1.8 % (0.0-4.0); HEMOGLOBIN 13.6 g/dL (12.0-18.0); LYMPH # 1.1 K/uL (1.0-4.3); LYMPH % 13.4 % (20.0-40.0); MEAN CELL VOLUME 86.3 fl (80.0-94.0); MEAN CORPUSCULAR HEMOGLOBIN 28.6 pg (27.0-31.0); MEAN CORPUSCULAR HGB CONC 33.2 g/dL (33.0-37.0); MEAN PLATELET VOLUME 8.6 fl (7.2-11.7); MONO # 0.8 K/uL (0.0-0.8); MONO % 9.6 % (0.0-10.0); NEUT % 74.9 % (50.0-75.0); RBC 4.77 Mil/uL (4.40-5.90); RED CELL DISTRIBUTION WIDTH 13.5 % (11.5-14.5)
[2019-02-24 10:51] LABS: ALB/GLOB RATIO 1.3 (1.0-2.1); ALBUMIN 3.7 g/dL (3.5-5.0); ALT/SGPT 28 U/L (21-72); AST/SGOT 19 U/L (17-59); BLOOD UREA NITROGEN 20 mg/dl (9-20); CALCIUM 9.4 mg/dL (8.4-10.2); GFR NON-AFRICAN AMERICAN > 60
[2019-02-24] MEDS: Bacitracin OINT 15GM TOP SCH ×2 (12:06→17:43)
[2019-02-24] MEDS: Divalproex 125 mg Sprinkle Capsule PO SCH ×2 (12:07→17:43)
[2019-02-24] MEDS: Patient's Own Med (Sitagliptin Phos/Metformin Hcl [Janumet 50-1,000 Mg Tablet] 1 TAB) PO SCH (12:07)
[2019-02-24 16:09] VITALS: BP 132/80; PULSE 97; TEMP 98.6
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
[2019-02-25] MEDS: Bacitracin OINT 15GM TOP SCH (08:54)
[2019-02-25] MEDS: Patient's Own Med (Sitagliptin Phos/Metformin Hcl [Janumet 50-1,000 Mg Tablet] 1 TAB) PO SCH (08:54)
[2019-02-25] MEDS: Insulin Regular 100 units/ml SC SCH (08:55)
[2019-02-25] MEDS: Divalproex 125 mg Sprinkle Capsule PO SCH (08:55)
== END 2019-02-25 12:00 | disposition home or self-care (01) | DRG 57 ==
LOC: H.ER 17:20 → H.ERHOLD 21:26 → H.STEP 23:48
PROVIDERS: ADMIT Psychiatry & Neurology Psychiatry; ATTEND Psychiatry & Neurology Psychiatry
PROC: GZ51ZZZ Individual Psychotherapy, Behavioral (ICD-10-PCS; principal; 2019-02-19)
PROC: GZHZZZZ Group Psychotherapy (ICD-10-PCS; 2019-02-21)
DX: G30.9 Alzheimer's disease, unspecified (principal); F02.81 Dementia in other diseases classified elsewhere, unspecified severity, with behavioral disturbance; F39 Unspecified mood [affective] disorder; E11.9 Type 2 diabetes mellitus without complications; Z79.84 Long term (current) use of oral hypoglycemic drugs; Z90.49 Acquired absence of other specified parts of digestive tract; Z98.42 Cataract extraction status, left eye; Z98.41 Cataract extraction status, right eye; Z96.1 Presence of intraocular lens